=== PATIENT | female | born 1980 | race Caucasian/White ===

== ENCOUNTER → 2022-08-29 | Outpatient (CLI) | payer SELFPAY, OTHER ==
--- NOTE | 2022-08-29 12:10 | EKG12_ITS ---
Test Reason : PRE OP Blood Pressure : / mmHG Vent. Rate : 065 BPM Atrial Rate : 065 BPM P-R Int : 140 ms QRS Dur : 076 ms QT Int : 422 ms P-R-T Axes : 045 035 017 degrees QTc Int : 438 ms Normal sinus rhythm Normal ECG Confirmed by PAT SANTOS, JULIANE ([id number]), general expeditor ALBIN WASHINGTON ([id number]) on 09/02/2022 10:32:52 AM Referred By: Andrew Anguiano Confirmed By:JULIANE STEWART MD
[2022-08-29 12:33] LABS: Absolute Lymphocyte Count 1.85 X10^3/uL (0.83-4.51); Absolute Neutrophil Count 4.6 X10^3/uL (2.0-7.7); Basophil# 0.02 X10^3/uL; Basophil% 0.3 % (0-1); Eosinophils% 1.4 % (0-5); Hematocrit 36.5 % (37-47); Hemoglobin 11.9 g/dL (12.0-15.0); Lymphocyte # 1.85 X10^3/ul (0.83-4.51); Lymphocyte % 26.7 % (19-41); Mean Corp Hgb Conc 32.6 g/dL (32-36); Mean Corpuscular Hgb 30.3 pg (27.0-32.0); Mean Corpuscular Volume 92.9 fL (81-99); Mean Platelet Vol. 10.4 fl (6.2-12.0); Monocyte# 0.34 X10^3/uL; Monocyte% 4.9 % (0-10); NRBC Flagged by Analyzer 0 % (0-5); Neutrophil # 4.57 X10^3/uL (2.7-7.7); Neutrophil % 66.1 % (47-70); Platelet Count 217 K/mm3 (150-450); RBC Distribution Width CV 13.2 % (11.6-14.6); RBC Distribution Width SD 44.7 fl (35.1-43.9); Red Blood Count 3.93 M/mm3 (4.2-5.4); White Blood Count 6.9 K/mm3 (4.4-11.0)
--- NOTE | 2022-08-29 12:45 | CT_ITS ---
PROCEDURE: CT RIGHT KNEE WITHOUT CONTRAST REASON FOR EXAM: Female, 42 years old. Preoperative planning for the [employer] Robotic knee surgery. Knee pain. TECHNIQUE: Transaxial CT of the hip, knee and ankle were obtained. Coronal and sagittal reconstruction images of the knee were provided. Individualized dose optimization techniques were used for this CT. DLP [id number] mGy/cm COMPARISON: None. FINDINGS: Standard protocol for the preoperative planning for the [employer] robotic knee surgery was performed. There is mild osteoarthrosis of the hip, knee and tibiotalar joint. CT/Extremity Lower without Contra IMPRESSION: Preoperative [employer] knee surgical CT evaluation with findings as described above. Electronically Signed: Laci Thornton MD at 14:13 EDT ,
[2022-08-29 13:05] LABS: Albumin, Serum 3.5 g/dL (3.2-5.0); Anion Gap 5 (5-15); BUN 12 mg/dL (7-18); BUN/Creat Ratio 13.8 RATIO (10-20); Calcium,Total 8.9 mg/dL (8.5-10.1); Chloride 105 mmol/L (98-107); Creatinine, Serum 0.87 mg/dL (0.55-1.02); EST Glomerular Filtration Rate 75 mL/min (>60); Est Glom Filt Rate - Afr Amer 91 mL/min (>60); Glucose 87 mg/dL (74-106); Potassium 3.7 mmol/L (3.5-5.1); Sodium Level 139 mmol/L (136-145)
== END | disposition home or self-care (01) ==
PROVIDERS: PCP Family Medicine; Referring Provider Specialist; Visit Provider Specialist
DX: Z01.810 Encounter for preprocedural cardiovascular examination (principal); Z01.818 Encounter for other preprocedural examination; M17.11 Unilateral primary osteoarthritis, right knee
CPT/HCPCS: 36415; 73700; 80048; 82040; 85025; 93005

== ENCOUNTER 2022-09-18 11:43 | Emergency (ER) | payer OTHER, SELFPAY ==
[2022-09-18 11:43] VITALS: RESP 18; TEMP 36.2; BMI 35.8
[2022-09-18 11:46] VITALS: BP 142/77; PULSE 64; RESP 12; O2SAT 98
--- NOTE | 2022-09-18 11:55 | EKG12_ITS ---
Test Reason : SYNCOPE Blood Pressure : / mmHG Vent. Rate : 061 BPM Atrial Rate : 061 BPM P-R Int : 140 ms QRS Dur : 076 ms QT Int : 438 ms P-R-T Axes : 025 029 000 degrees QTc Int : 440 ms Normal sinus rhythm Possible Lateral infarct , age undetermined Abnormal ECG Confirmed by ROMANA SANTOS, JAKI ([id number]), multimedia editor ALBIN WASHINGTON ([id number]) on 09/22/2022 10:36:56 A M Referred By: Confirmed By:MATHEW AVENDANO MD
--- NOTE | 2022-09-18 11:56 | EX.ED.DYSGE1 ---
HPI History of Present Illness Chief Complaint: Syncope Detail of Chief Complaint: Syncopal episode Informant: patient and other (Orthopedic physicians office) Onset/Context/Timing Onset: Hours Context: Sudden Onset Timing: Intermittent Quality: Passed out when favian were removed Location: Orthopedic office Current Severity: Gone Maximum Severity: Severe Worsened by: Patient does not know why Relieved by: Nothing Associated Symptoms Associated Symptoms: Tunnel vision, nausea, slight diaphoresis Narrative Narrative: Patient is a 42-year-old woman with history of hypothyroidism, GERD and depression who presents after having a syncopal episode. This occurred when her favian were being removed. She had symptoms consistent with vasovagal response. She presently feels back to normal. She denies headache, visual, ocular auditory symptoms. She denies cardiac or respiratory symptoms presently. She denies GI symptoms presently. Prior similar symptoms: No Recent Illness/Hospitalization: Yes PFSH PFSH Medical History no medical history no medical history (Document in the HPI narrative) Home Medications acetaminophen 500 mg tablet 1,000 mg PO Q8H 09/18/22 [History Last Taken Unknown] aspirin 81 mg capsule 81 mg PO BID 09/18/22 [History Last Taken Unknown] bupropion HCl 150 mg 24 hr tablet, extended release 150 mg PO DAILY 09/18/22 [History Last Taken Unknown] famotidine 20 mg tablet 20 mg PO DAILY 09/18/22 [History Last Taken Unknown] ferrous sulfate 325 mg (65 mg iron) tablet 325 mg PO BID 09/18/22 [History Last Taken Unknown] fluoxetine 40 mg capsule 40 mg PO DAILY 09/18/22 [History Last Taken Unknown] levothyroxine 125 mcg capsule 125 mcg PO DAILY 09/18/22 [History Last Taken Unknown] meloxicam 7.5 mg disintegrating tablet 7.5 mg PO BID 09/18/22 [History Last Taken Unknown] ondansetron HCl 4 mg tablet 4 mg PO Q8H PRN Nausea 09/18/22 [History Last Taken Unknown] oxycodone 5 mg capsule 5 mg PO BID PRN Pain 09/18/22 [History Last Taken Unknown] Allergy/AdvReac Type Severity Reaction Status Date / Time No Known Allergies Allergy Verified 09/18/22 11:43 Surgical History History of partial knee replacement Social History Smoking Status: Never smoker ROS ROS ED Constitutional Constitutional ED: Denies chills, fever(s), subjective, sweats or weight loss Eyes Eyes: Reports change in vision bilateral; Denies blurry vision or diplopia ENT ENT ED: Denies ear pain, rhinorrhea or sore throat Cardiovascular Cardiovascular: Denies chest pain or palpitations Respiratory/Chest Respiratory/Chest: Denies cough, dyspnea or dyspnea on exertion Gastrointestinal Gastrointestinal: Denies abdominal pain, nausea or vomiting Musculoskeletal Musculoskeletal: Denies arthralgias, back pain or myalgias Integumentary Denies rash Psychiatric Psychiatric: Denies anxiety or depression EXAM Physical Exam Const Vital Signs: 09/18/22 11:43 09/18/22 11:46 09/18/22 11:47 Temperature 97.1 F L Temperature Source Temporal Pulse Rate 64 Respiratory Rate 18 12 Respiratory Effort Normal Non-Labored Respiratory Pattern Normal Blood Pressure 142/77 H Blood Pressure Mean 98 Pulse Ox 98 Oxygen Delivery Method Room Air Room Air Positive well nourished, well developed and obese General Appearance ED: well developed, NAD and pallor; Negative for cyanotic or diaphoretic Nutritional Appearance: obese HEENT Reports moist mucous membranes HEENT Narrative: Head is atraumatic normocephalic. Ears are normal. Nares are patent. Mucosa is moist. Eyes PERRL and EOMs intact bilaterally General Eye ED: Negative for pale conjunctiva or scleral icterus Neck no lymphadenopathy, supple and no JVD Resp normal respiratory effort and clear to auscultation bilaterally Cardio regular rate, regular rhythm, S1 normal heart sound, S2 normal heart sound and no murmurs GI normal to inspection, nondistended, normoactive bowel sounds, non-tender, non-distended and no masses; Negative for hepatosplenomegaly GI Narrative: There is no pulsatile mass or abdominal Extremity Extremity Narrative: Incision site is intact without evidence of infection. Neuro oriented x3, CN's II-XII intact bilaterally and no sensory deficits noted Sensorium / Orientation: alert Motor Exam: strength 5/5 throughout Psych mental status grossly normal Skin no rashes or lesions noted, no wounds and skin turgor normal General Skin Exam: elasticity normal and pallor; Negative for jaundice MDM MDM MDM Narrative Medical decision making narrative: We will need EKG to rule out inferior cardiac ischemia. If normal patient had a vasovagal syncopal episode. Will discharge to home with appropriate home-going instructions if EKG normal. Rhythm Strip Rhythm Strip: Sinus Rhythm Rate: 66 Ectopy: None EKG Initial EKG: Attestation: I personally reviewed and interpreted this EKG as follows: Interpretation: Sinus Rhythm (Rate is 61. AR interval is 140 ms. QRS duration 76 ms. QT duration 438 seconds. I disagree with interpretation by computer that there is possible lateral infarct. There is no acute ischemic changes. This is a normal EKG.) Discharge Plan Triage Chief Complaint: Syncope ED Provider: River Silverio Dx/Rx/DC Orders Clinical Impression: Syncope, vasovagal Instructions: ED Fainting, Vagal Reaction Prescriptions: No Action fluoxetine 40 mg Capsule 40 mg PO DAILY ondansetron HCl [Zofran] 4 mg Tablet 4 mg PO Q8H PRN (Reason: Nausea) acetaminophen [Tylenol Ex Str Arthritis Pain] 500 mg Tablet 1,000 mg PO Q8H famotidine 20 mg Tablet 20 mg PO DAILY ferrous sulfate 325 mg (65 mg iron) Tablet 325 mg PO BID oxycodone 5 mg Capsule 5 mg PO BID PRN (Reason: Pain) bupropion HCl 150 mg Tablet Extended Release 24 Hr 150 mg PO DAILY levothyroxine 125 mcg Capsule 125 mcg PO DAILY meloxicam 7.5 mg Tablet,Disintegrating 7.5 mg PO BID aspirin 81 mg Capsule 81 mg PO BID Primary Care Provider: Osorio Palacios Referrals: Osorio Palacios MD [Primary Care Provider] - As Needed Disposition Disposition: Home, Self Care
[2022-09-18 12:25] VITALS: BP 128/62; PULSE 68; RESP 16; O2SAT 98
== END 2022-09-18 12:25 | disposition home or self-care (01) ==
LOC: ED 12:17
PROVIDERS: Emergency Provider Emergency Medicine; PCP Family Medicine; Visit Provider Emergency Medicine
DX: R55 Syncope and collapse (principal); F32.A Depression, unspecified; E03.9 Hypothyroidism, unspecified; K21.9 Gastro-esophageal reflux disease without esophagitis; Z79.899 Other long term (current) drug therapy
CPT/HCPCS: 93005; 99284; A4216